=== PATIENT | female | born 1945 | race Caucasian/White ===

== ENCOUNTER 2018-02-10 10:59 | Emergency (ER) | payer OTHER ==
[~2018-02-10] VITALS: Ht 165.1 cm; Wt 77.1 kg
--- NOTE | ~2018-02-10 | EKG ---
[address] [place] [address] ELECTROCARDIOGRAM REPORT Name: ML POWERS Room #: [facility]#: [id number] Admission: 02/10/18 Attend Phys: Discharge: 02/10/18 Date of : 43 Report #: [id number] THIS REPORT FOR: //name// [facility] ED Test Date: 2018-02-10 Test Time: 11:11:37 Pat Name: ML POWERS Department: Room: Gender: F Private Chef: RANDALL : 1945 Requested By: Madhu Huffman Order Number: [id number] MD: Sharif Villar Measurements Intervals [place] Rate: 69 P: 31 NC: 202 QRS: -14 QRSD: 99 T: 5 QT: 403 QTc: 432 Interpretive Statements Sinus rhythm Normal tracing Compared to ECG 06/10/2016 08:46:03 T-wave abnormality no longer present Electronically Signed On 02-11-2018 8:11:03 CDT by Sharif Villar [email or web address] <ELECTRONICALLY SIGNED> By: Sharif Villar MD, [facility] 02/11/18 0811 1111 1111 Sharif Villar MD, FACC /EPI
[~2018-02-10 10:59] MED LIST: ACCUPRIL40 MG PO; ACCUPRIL5 MG PO; AMLODIPINE BESY10 MG PO; ASPIRIN325 PO; CALCIUM 500 +1 EAC5 PO; CELEBREX 200 M200 M1 PO; CENTRUM SILVER1 EAC4 PO; CRESTOR10 MG PO; CVS BUFFERED A325 MG PO; DETROL LA4 MG PO; FISH OIL 1,001000 M2 PO; GALZIN50 MG PO; GARLIC100 MG PO; IBUPROFEN 600600 M1 PO; KLOR-CON 1010 MEQ PO; METOPROLOL SUCC50 MG PO; MS CONTIN15 MG PO; OMEPRAZOLE 20 M20 M1 PO; PERCOCET PO; POTASSIUM CHLO10 MEQ PO; QUINAPRIL HCL40 MG PO; TRAMADOL 50 MG50 MG PO; ULTRA-LIGHT RO1 EACH MC; VITAMIN B-12500 MCG PO
[2018-02-10] MEDS ORDERED: ACETAMINOPHEN-1 EAC1 PO (11:13)
[2018-02-10 11:34] LABS: ABSOLUTE NEUTROPHILS 5.5 thou/uL (1.4-8.2); EOSINOPHILS 0.9 % (0.0-3.0); HEMATOCRIT 44.6 % (37.0-47.0); HEMOGLOBIN 14.9 gm/dL (12.0-15.0); LYMPHOCYTES 22.6 % (24.0-44.0); MCH 28.2 pg (26.0-34.0); MCHC 33.4 g/dL (28.0-37.0); MCV 84.5 fL (80.0-100.0); MONOCYTES 9.5 % (1.0-8.0); PLATELET COUNT 291 thou/uL (150-400); RBC 5.27 mil/uL (4.20-5.00); RDW 14.2 % (10.5-14.5); WBC 8.3 thou/uL (4.0-11.0)
[2018-02-10 11:42] LABS: ANION GAP 9 mmol/L (7-16); BUN 15 mg/dL (7-18); CALCIUM 9.4 mg/dL (8.5-10.1); CHLORIDE 105 mmol/L (98-107); CO2 27 mmol/L (21-32); CREATININE 0.8 mg/dL (0.6-1.0); GLUCOSE 109 mg/dL (74-106); POTASSIUM 4.4 mmol/L (3.5-5.1); SODIUM 141 mmol/L (136-145)
[2018-02-10 11:52] LABS: TROPONIN-I < 0.04 ng/mL (<0.06)
[2018-02-10] MEDS ORDERED: TRAMADOL 50 MG50 MG PO (12:45)
== END 2018-02-10 13:17 | disposition home or self-care (01) ==
LOC: ER 10:59
PROVIDERS: Emergency Medicine
DX: R07.89 Other chest pain (principal); G51.0 Bell's palsy; I10 Essential (primary) hypertension; E78.00 Pure hypercholesterolemia, unspecified; K21.9 Gastro-esophageal reflux disease without esophagitis; Z96.652 Presence of left artificial knee joint; Z86.73 Personal history of transient ischemic attack (TIA), and cerebral infarction without residual deficits